=== PATIENT | female | born 1955 | race Asian ===

== ENCOUNTER 2022-10-27 12:28 | Inpatient (IN) | payer OTHER ==
[~2022-10-27] VITALS: Ht 162.6 cm; Wt 77.1 kg
[~2022-10-27 12:28] MED LIST: GLIPIZIDE; HCTZ; LASIX; LOSARTAN
[2022-10-27] MEDS ORDERED: NOREPINEPHRINE 8MG/250ML PMX 250 ML IV STA (12:48)
[2022-10-27] MEDS ORDERED: NOREPINEPHRINE 8 MG in DEXTROSE 5% WATER 250 ML IV PRN (14:45)
[2022-10-27 15:35] LABS: HEMATOCRIT. 34.7 % (36.0-48.0); HEMOGLOBIN. 11.4 g/dL (12.0-16.0); MEAN CORPUSCULAR HEMOGLOBIN 29.6 pg (28.0-32.0); MEAN CORPUSCULAR VOLUME 90.2 fL (81.0-99.0); MEAN PLATELET VOLUME 9.7 fl (7.4-10.4); PLATELET 148 x1000/uL (130-400); RED BLOOD CELL COUNT 3.85 mill/uL (4.2-5.4); RED CELL DISTRIBUTION WIDTH 15.7 % (11.6-14.6)
[2022-10-27 15:39] LABS: CHLORIDE 95 mEq/L (98-107)
[2022-10-27] MEDS ORDERED: CEFTRIAXONE 1 G PREMIX 50 ML IV ONE (16:00)
[2022-10-27] MEDS ORDERED: VANCOMYCIN 1G PREMIX 200 ML IV SCH (16:00)
[2022-10-27] MEDS ORDERED: DEXTROSE 50% WATER 50ML SYRINGE IV PRN (16:15)
[2022-10-27] MEDS ORDERED: ENOXAPARIN 40MG/0.4ML SYR SUBCUT SCH (16:15)
[2022-10-27] MEDS ORDERED: IPRATROPIUM/ALBUTEROL 0.5-3(2.5)MG/3ML NEB NEB PRN (16:15)
[2022-10-27] MEDS ORDERED: ONDANSETRON HCL 4MG/2ML INJ IV PRN (16:15)
[2022-10-27] MEDS ORDERED: MAGNESIUM/ALUMINUM HYDROXIDE/SIMETHICONE 30ML UDC PO PRN (16:15)
[2022-10-27] MEDS ORDERED: DOCUSATE SODIUM 100MG CAPSULE PO PRN (16:15)
[2022-10-27] MEDS ORDERED: NITROGLYCERIN 0.4MG TABLET SL SL PRN (16:15)
[2022-10-27] MEDS ORDERED: CLONIDINE 0.1MG TABLET PO PRN (16:15)
[2022-10-27] MEDS ORDERED: ACETAMINOPHEN 325MG TABLET PO PRN (16:15)
[2022-10-27] MEDS ORDERED: ENOXAPARIN 30MG/0.3ML SYR SUBCUT SCH (16:30)
[2022-10-27] MEDS ORDERED: CALC667T2 PO (16:32)
[2022-10-27] MEDS ORDERED: NIFE-33 PO (16:32)
[2022-10-27] MEDS ORDERED: CINA30 PO (16:32)
[2022-10-27] MEDS ORDERED: ATOR80TA PO (16:33)
[2022-10-27] MEDS ORDERED: METO25TA6 PO (16:33)
[2022-10-27] MEDS ORDERED: LOSA100T32 PO (16:34)
[2022-10-27] MEDS ORDERED: GABA-529 PO (16:34)
[2022-10-27] MEDS ORDERED: INSU100V3 SUBCUT (16:37)
[2022-10-27] MEDS ORDERED: SODI15OR5 PO (16:37)
[2022-10-27] MEDS ORDERED: BLOO-1065 SQ (16:40)
[2022-10-27] MEDS: BLOOD SUGAR DIAGNOSTIC STRIP TEST SCH ×2 (16:55→21:00)
[2022-10-27 18:14] LABS: PLATELET ESTIMATE NORMAL
[2022-10-27 18:29] LABS: ETHANOL BLOOD < 10 mg/dL; TOTAL IRON BINDING CAPACITY 163 ug/dL (250-450)
[2022-10-27] MEDS: SEVELAMER CARBONATE 800 MG TABLET PO SCH (18:39)
[2022-10-27] MEDS: INSULIN LISPRO 100 UNITS/ML SUBCUT SCH ×2 (18:39→21:00)
[2022-10-27] MEDS ORDERED: POTASSIUM CHLORIDE 20MEQ/PACKET PO NR (18:45)
[2022-10-27 18:48] LABS: FOLIC ACID (FOLATE) SERUM 9.2 ng/mL (>5.38)
[2022-10-27] MEDS ORDERED: ENOXAPARIN 40MG/0.4ML SYR SUBCUT NR (19:00)
[2022-10-27] MEDS: FAMOTIDINE 20MG TABLET PO SCH (21:00)
[2022-10-27] MEDS ORDERED: ZOLPIDEM TARTRATE 5MG TABLET PO PRN (21:00)
[2022-10-27] MEDS: ASCORBIC ACID 500 MG TABLET PO SCH (21:00)
[2022-10-27] MEDS ORDERED: PIPERACILLIN/TAZ 3.375G PREMIX 50 ML IV SCH (21:00)
[2022-10-27 21:13] LABS: INR 1.1; PROTHROMBIN TIME 11.4 sec (9.6-11.0)
[2022-10-28] VITALS (64 sets, daily range): BP systolic 68–168; BP diastolic 24–80
[2022-10-28 02:41] LABS: CREATINE KINASE MB FRACTION 5.2 ng/mL (0.5-3.6)
[2022-10-28 04:40] LABS: HEMATOCRIT. 37.7 % (36.0-48.0); HEMOGLOBIN. 12.6 g/dL (12.0-16.0); MEAN CORPUSCULAR HEMOGLOBIN 29.9 pg (28.0-32.0); MEAN CORPUSCULAR VOLUME 89.2 fL (81.0-99.0); MEAN PLATELET VOLUME 8.8 fl (7.4-10.4); PLATELET 201 x1000/uL (130-400); RED BLOOD CELL COUNT 4.22 mill/uL (4.2-5.4); RED CELL DISTRIBUTION WIDTH 15.3 % (11.6-14.6)
[2022-10-28 04:43] LABS: CHLORIDE 93 mEq/L (98-107)
[2022-10-28 04:54] LABS: CREATINE KINASE 142 IU/L (26-192); CREATINE KINASE MB FRACTION 5.2 ng/mL (0.5-3.6); PHOSPHORUS 3.8 mg/dL (2.5-4.9)
[2022-10-28] MEDS: BLOOD SUGAR DIAGNOSTIC STRIP TEST SCH ×4 (07:23→20:28)
[2022-10-28] MEDS: INSULIN LISPRO 100 UNITS/ML SUBCUT SCH ×4 (07:34→20:32)
[2022-10-28 08:27] LABS: PLATELET ESTIMATE NORMAL
[2022-10-28] MEDS: ZINC SULFATE 220 MG ( 50 ) CAPSULE PO SCH (10:23)
[2022-10-28] MEDS: SEVELAMER CARBONATE 800 MG TABLET PO SCH ×3 (10:23→16:50)
[2022-10-28] MEDS: GUAIFENESIN 200MG/10ML SUGAR FREE UDC PO PRN (10:23)
[2022-10-28] MEDS: ASCORBIC ACID 500 MG TABLET PO SCH ×2 (10:24→20:31)
[2022-10-28] MEDS: ASPIRIN 325MG EC TABLET PO SCH (10:24)
[2022-10-28] MEDS: NOREPINEPHRINE 8 MG in DEXT 5% WATER 242 ML IV PRN (10:37)
[2022-10-28] MEDS: PIPERACILLIN/TAZOBACTAM 3.375 G in DEXTROSE 5% WATER 50 ML IV SCH ×2 (12:01→20:31)
[2022-10-28] MEDS: ENOXAPARIN 80MG/0.8ML SYR SUBCUT SCH (14:15)
[2022-10-28 17:00] LABS: HEPATITIS B SURFACE ANTIGEN NEGATIVE
[2022-10-28] MEDS ORDERED: VANCOMYCIN 500MG PREMIX 100 ML IV NR (18:00)
[2022-10-28] MEDS: FAMOTIDINE 20MG TABLET PO SCH (20:32)
[2022-10-29] VITALS (100 sets, daily range): BP systolic 56–180; BP diastolic 18–72
[2022-10-29 05:25] LABS: HEMATOCRIT. 33.4 % (36.0-48.0); HEMOGLOBIN. 11.1 g/dL (12.0-16.0); MEAN CORPUSCULAR HEMOGLOBIN 30.3 pg (28.0-32.0); MEAN CORPUSCULAR VOLUME 90.9 fL (81.0-99.0); MEAN PLATELET VOLUME 9.6 fl (7.4-10.4); PLATELET 131 x1000/uL (130-400); RED BLOOD CELL COUNT 3.67 mill/uL (4.2-5.4); RED CELL DISTRIBUTION WIDTH 15.3 % (11.6-14.6)
[2022-10-29 05:36] LABS: CHLORIDE 95 mEq/L (98-107)
[2022-10-29 05:51] LABS: PHOSPHORUS 2.1 mg/dL (2.5-4.9)
[2022-10-29] MEDS: BLOOD SUGAR DIAGNOSTIC STRIP TEST SCH ×4 (06:14→20:08)
[2022-10-29] MEDS: INSULIN LISPRO 100 UNITS/ML SUBCUT SCH ×4 (06:18→20:13)
[2022-10-29] MEDS: SEVELAMER CARBONATE 800 MG TABLET PO SCH ×3 (06:18→17:42)
[2022-10-29] MEDS: ZINC SULFATE 220 MG ( 50 ) CAPSULE PO SCH (08:22)
[2022-10-29] MEDS: ASPIRIN 325MG EC TABLET PO SCH (08:22)
[2022-10-29] MEDS: PIPERACILLIN/TAZOBACTAM 3.375 G in DEXTROSE 5% WATER 50 ML IV SCH ×2 (08:23→20:12)
[2022-10-29] MEDS: ASCORBIC ACID 500 MG TABLET PO SCH ×2 (08:23→20:12)
[2022-10-29] MEDS: MIDODRINE HCL 5MG TABLET PO SCH ×3 (08:23→17:42)
[2022-10-29 08:38] LABS: PLATELET ESTIMATE NORMAL
[2022-10-29] MEDS: ENOXAPARIN 80MG/0.8ML SYR SUBCUT SCH (13:47)
[2022-10-29] MEDS: FAMOTIDINE 20MG TABLET PO SCH (20:12)
[2022-10-30] VITALS (82 sets, daily range): BP systolic 32–174; BP diastolic 20–80
[2022-10-30] MEDS: BLOOD SUGAR DIAGNOSTIC STRIP TEST SCH ×4 (05:10→20:44)
[2022-10-30 05:50] LABS: HEMATOCRIT. 30.2 % (36.0-48.0); HEMOGLOBIN. 10.1 g/dL (12.0-16.0); MEAN CORPUSCULAR HEMOGLOBIN 29.8 pg (28.0-32.0); MEAN CORPUSCULAR VOLUME 88.8 fL (81.0-99.0); MEAN PLATELET VOLUME 8.9 fl (7.4-10.4); PLATELET 148 x1000/uL (130-400); RED BLOOD CELL COUNT 3.39 mill/uL (4.2-5.4); RED CELL DISTRIBUTION WIDTH 15.5 % (11.6-14.6)
[2022-10-30] MEDS: INSULIN LISPRO 100 UNITS/ML SUBCUT SCH ×4 (06:14→20:45)
[2022-10-30] MEDS: SEVELAMER CARBONATE 800 MG TABLET PO SCH ×3 (06:15→17:35)
[2022-10-30 06:55] LABS: PHOSPHORUS 2.8 mg/dL (2.5-4.9)
[2022-10-30 07:22] LABS: PLATELET ESTIMATE NORMAL
[2022-10-30] MEDS: ZINC SULFATE 220 MG ( 50 ) CAPSULE PO SCH (08:17)
[2022-10-30] MEDS: ASPIRIN 325MG EC TABLET PO SCH (08:17)
[2022-10-30] MEDS: PIPERACILLIN/TAZOBACTAM 3.375 G in DEXTROSE 5% WATER 50 ML IV SCH ×2 (08:17→20:35)
[2022-10-30] MEDS: MIDODRINE HCL 5MG TABLET PO SCH ×3 (08:17→17:35)
[2022-10-30] MEDS: ASCORBIC ACID 500 MG TABLET PO SCH ×2 (08:17→20:35)
[2022-10-30] MEDS: ENOXAPARIN 30MG/0.3ML SYR SUBCUT SCH (14:55)
[2022-10-30] MEDS: NOREPINEPHRINE 8 MG in DEXT 5% WATER 242 ML IV PRN (15:09)
[2022-10-30] MEDS ORDERED: VANCOMYCIN 500MG PREMIX 100 ML IV NR (18:00)
[2022-10-30] MEDS: FAMOTIDINE 20MG TABLET PO SCH (20:35)
[2022-10-31] VITALS: BP 117/55
[2022-10-31 04:00] VITALS: BP 107/41
[2022-10-31 05:41] LABS: PHOSPHORUS 2.2 mg/dL (2.5-4.9)
[2022-10-31 06:19] LABS: EOSINOPHILS % 4.9 % (0.0-5.0); HEMATOCRIT. 30.3 % (36.0-48.0); HEMOGLOBIN. 10.1 g/dL (12.0-16.0); LYMPHOCYTES % 7.5 % (20.0-50.0); MEAN CORPUSCULAR VOLUME 89.8 fL (81.0-99.0); MEAN PLATELET VOLUME 8.6 fl (7.4-10.4); MONOCYTES % 13.1 % (2.0-8.0); NEUTROPHILS % 73.5 % (40.0-76.0); PLATELET 181 x1000/uL (130-400); RED BLOOD CELL COUNT 3.37 mill/uL (4.2-5.4); RED CELL DISTRIBUTION WIDTH 15.2 % (11.6-14.6)
[2022-10-31] MEDS: BLOOD SUGAR DIAGNOSTIC STRIP TEST SCH ×4 (06:19→21:52)
[2022-10-31] MEDS: INSULIN LISPRO 100 UNITS/ML SUBCUT SCH ×4 (06:27→21:00)
[2022-10-31 08:00] VITALS: BP 105/41
[2022-10-31] MEDS: SEVELAMER CARBONATE 800 MG TABLET PO SCH ×3 (10:04→16:37)
[2022-10-31] MEDS: ASCORBIC ACID 500 MG TABLET PO SCH ×2 (10:04→20:29)
[2022-10-31] MEDS: GUAIFENESIN 200MG/10ML SUGAR FREE UDC PO PRN ×2 (10:04→20:29)
[2022-10-31] MEDS: ZINC SULFATE 220 MG ( 50 ) CAPSULE PO SCH (10:04)
[2022-10-31] MEDS: MIDODRINE HCL 5MG TABLET PO SCH ×3 (10:05→16:37)
[2022-10-31] MEDS: ASPIRIN 325MG EC TABLET PO SCH (10:05)
[2022-10-31] MEDS: PIPERACILLIN/TAZOBACTAM 3.375 G in DEXTROSE 5% WATER 50 ML IV SCH ×2 (10:05→20:29)
[2022-10-31 12:00] VITALS: BP 108/62
[2022-10-31] MEDS: ENOXAPARIN 30MG/0.3ML SYR SUBCUT SCH (13:35)
[2022-10-31 16:00] VITALS: BP 125/57
[2022-10-31 20:01] VITALS: BP 143/49
[2022-10-31] MEDS: FAMOTIDINE 20MG TABLET PO SCH (20:29)
[2022-11-01] VITALS (13 sets, daily range): BP systolic 99–150; BP diastolic 35–98
[2022-11-01 06:01] LABS: BASOPHILS % 1.3 % (0.0-2.0); HEMATOCRIT. 32.1 % (36.0-48.0); HEMOGLOBIN. 10.5 g/dL (12.0-16.0); LYMPHOCYTES % 10.8 % (20.0-50.0); MEAN CORPUSCULAR HEMOGLOBIN 29.1 pg (28.0-32.0); MEAN CORPUSCULAR VOLUME 88.8 fL (81.0-99.0); MEAN PLATELET VOLUME 8.3 fl (7.4-10.4); MONOCYTES % 14.6 % (2.0-8.0); NEUTROPHILS % 68.3 % (40.0-76.0); PLATELET 220 x1000/uL (130-400); RED BLOOD CELL COUNT 3.61 mill/uL (4.2-5.4); RED CELL DISTRIBUTION WIDTH 15.3 % (11.6-14.6)
[2022-11-01 06:06] LABS: PHOSPHORUS 2.5 mg/dL (2.5-4.9)
[2022-11-01] MEDS: BLOOD SUGAR DIAGNOSTIC STRIP TEST SCH ×2 (06:55→11:50)
[2022-11-01] MEDS: INSULIN LISPRO 100 UNITS/ML SUBCUT SCH ×2 (07:20→12:20)
[2022-11-01] MEDS ORDERED: ASPI-1406 MT (08:09)
[2022-11-01] MEDS ORDERED: MIDO5TAB4 PO (08:09)
[2022-11-01] MEDS: GUAIFENESIN 200MG/10ML SUGAR FREE UDC PO PRN (08:56)
[2022-11-01] MEDS: SEVELAMER CARBONATE 800 MG TABLET PO SCH ×2 (08:56→12:58)
[2022-11-01] MEDS: ASPIRIN 325MG EC TABLET PO SCH (08:57)
[2022-11-01] MEDS: MIDODRINE HCL 5MG TABLET PO SCH ×2 (08:57→12:59)
[2022-11-01] MEDS: ZINC SULFATE 220 MG ( 50 ) CAPSULE PO SCH (08:57)
[2022-11-01] MEDS: ACETAMINOPHEN 325MG TABLET PO PRN ×2 (08:57→12:59)
[2022-11-01] MEDS: ASCORBIC ACID 500 MG TABLET PO SCH (08:57)
[2022-11-01] MEDS: PIPERACILLIN/TAZOBACTAM 3.375 G in DEXTROSE 5% WATER 50 ML IV SCH (09:00)
[2022-11-01] MEDS ORDERED: VANCOMYCIN 500MG PREMIX 100 ML IV SCH (14:00)
== END 2022-11-01 13:24 | disposition home health service (06) | DRG 871 ==
LOC: ER 12:28 → EDBEDREQTM 15:59 → EDBEDREQSVC 15:59 → EDBEDREQ 15:59 → MICUSO 16:01 → 3WST 10-30 21:36
PROVIDERS: ADMIT Internal Medicine; ATTEND Internal Medicine
PROC: B54MZZA Ultrasonography of Right Upper Extremity Veins, Guidance (ICD-10-PCS; principal; 2022-10-27)
PROC: 05HY33Z Insertion of Infusion Device into Upper Vein, Percutaneous Approach (ICD-10-PCS; 2022-10-27)
PROC: 5A1D70Z Performance of Urinary Filtration, Intermittent, Less than 6 Hours Per Day (ICD-10-PCS; 2022-10-28)
PROC: 5A1D70Z Performance of Urinary Filtration, Intermittent, Less than 6 Hours Per Day (ICD-10-PCS; 2022-10-30)
PROC: 5A1D70Z Performance of Urinary Filtration, Intermittent, Less than 6 Hours Per Day (ICD-10-PCS; 2022-11-01)
DX: A41.9 Sepsis, unspecified organism (principal); E43 Unspecified severe protein-calorie malnutrition; N18.6 End stage renal disease; R65.21 Severe sepsis with septic shock; R57.0 Cardiogenic shock; I21.4 Non-ST elevation (NSTEMI) myocardial infarction; I12.0 Hypertensive chronic kidney disease with stage 5 chronic kidney disease or end stage renal disease; E87.1 Hypo-osmolality and hyponatremia; E83.51 Hypocalcemia; E87.6 Hypokalemia; Z20.822 Contact with and (suspected) exposure to COVID-19; E11.22 Type 2 diabetes mellitus with diabetic chronic kidney disease; D63.8 Anemia in other chronic diseases classified elsewhere; E78.00 Pure hypercholesterolemia, unspecified; I25.10 Atherosclerotic heart disease of native coronary artery without angina pectoris; Z99.2 Dependence on renal dialysis; Z95.1 Presence of aortocoronary bypass graft; Z83.3 Family history of diabetes mellitus; Z86.16 Personal history of COVID-19; Z82.49 Family history of ischemic heart disease and other diseases of the circulatory system; Z68.29 Body mass index [BMI] 29.0-29.9, adult; Z79.4 Long term (current) use of insulin
CPT/HCPCS: 36415; 36573; 71045; 80048; 80053; 80202; 80320; 82550; 82553; 82607; 82746; 82962; 83036; 83540; 83550; 83605; 83735; 84100; 84145; 84439; 84443; 84484; 85025; 86705; 86709; 86803; 87340; 87426; 87804; 90935; 93005; 93306; 93970; 97162; 97166; 99291; C1725; J0696; J1650; J1815; J2405; J2543; J3370; J3490; J7060; G0480